=== PATIENT | female | born 1980 | race Caucasian/White ===

== ENCOUNTER 2023-11-30 08:50 | Emergency (ER) | payer BC, SELFPAY ==
[2023-11-30 08:51] VITALS: BP 199/127
[2023-11-30 09:09] VITALS: BP 170/116
--- NOTE | 2023-11-30 09:09 | ED.GENMED ---
History of Present Illness
General
Chief Complaint: Heart Rate Problem
Source: patient
Exam Limitations: none
Time Seen by Provider: 11/30/23 08:56
Nursing documentation reviewed up to this point in time: agreed with
Travel History
Have you had any contact with someone who has COVID-19?: No
Do you have any symptoms of coronavirus? Fever > 100 degrees, chills, cough, shortness of breath, sore throat, loss of taste or smell, muscle aches, or headache?: No
History of Present Illness
History of Present Illness:
43-year-old female with no significant chronic medical issues who presents to the emergency room for evaluation of palpitations. Patient reports onset of symptoms 10 PM last night and have been intermittent since that time. She reports sensation
'like butterflies in my chest.' She says that symptoms are very quick and then quickly resolve�she has not had sustained palpitations. She denies any associated chest pain. She denies any associated shortness of breath. She says that yesterday
throughout the day she would have quick bouts of dizziness but no dizziness at present and not temporally associated with sensation of palpitations. She denies any other complaints. She denies any recent increased caffeine. She denies any known
history of cardiac issues. She says that she has seen Dr. Rosales in the past for evaluation of similar symptoms years ago with no clear diagnosis.
Past History
Past History
ED Past Medical History: None
Social History
Personal:
Review of Systems
Review of Systems
All Other Systems: ROS reviewed and negative except as documented in HPI and ROS
Constitutional: Denies fever
Respiratory: Denies cough or trouble breathing
Cardiac: Reports palpitations; Denies chest pain or diaphoresis
ABD/GI: Denies abdominal pain, nausea or vomiting
: Denies flank pain
Musculoskeletal: Denies neck pain or back pain
Neurological: Reports dizzy; Denies headache
Phy Exam
Physical Exam
Physical Exam:
General: Awake, alert, oriented x3; no acute distress
Head: Normocephalic, atraumatic
Eyes: Conjunctiva normal, sclera anicteric
Throat: Airway intact, handling secretions
Neck: Trachea midline, supple without meningismus
Lungs: Clear to auscultation bilaterally, no wheezing, rales, rhonchi
Heart: Regular rate and rhythm with no appreciable ectopy, no murmurs, gallops, or rubs
Abd: Soft, non distended, nontender
Neuro: Cranial nerves grossly intact, speech fluid
Skin: no rash
Extremities: No edema in extremities, equal pulses in all extremities
Scores
Heart Failure Risk
Heart Failure Risk Score: Not Applicable
Heart Score for Chest Pain Patients
STEMI patient?: Not applicable
Withdrawal Assessment of Alcohol
Withdrawal Assessment Completed?: Not applicable
Course
Orders/Labs/Results
Orders:
Orders
11/30/23 08:54
ECG [Electrocardiogram (*1)] Urgent
Reason for Study: Palpitations
EKG- Treatment ONCE
11/30/23 08:57
Test Result ONCE
11/30/23 09:16
Complete Blood Count/With Diff Urgent
Comprehensive Metabolic Panel Urgent
HCG, Serum Qualitative Screen Urgent
Magnesium Urgent
TSH Reflex To Free T4 Urgent
Abnormal Lab Results
11/30/23
09:16
RBC 3.86 L 10^6/uL
(4.20-5.40)
MCH 34.2 H pg
(27.0-31.0)
Glucose 110 H mg/dl
(70-99)
11/30/23 09:16
11/30/23 09:16
Vital Signs
Initial and Last Documented VS:
Initial Vital Signs
Temp Pulse Resp BP Pulse Ox
36.8 C 75 18 199/127 100
11/30/23 08:51 11/30/23 08:51 11/30/23 08:51 11/30/23 08:51 11/30/23 08:51
Last Documented Vital Signs
Temp Pulse Resp BP Pulse Ox
36.8 C 66 11 166/96 99
11/30/23 08:51 11/30/23 10:15 11/30/23 10:15 11/30/23 10:00 11/30/23 10:15
MDM/Problems Addressed
Differential Diagnosis Includes:
PACs/PVCs, dysrhythmia including atrial fibrillation, anxiety
MDM/Problems Addressed:
43-year-old female presents to the emergency room for evaluation of palpitations intermittent since last night at 10 PM. Hypertensive but otherwise normal vitals. Physical exam as above. Plan to check an EKG. Will place an IV send labs including
a CBC and a CMP, thyroid studies, hCG. Will monitor on telemetry. Reassess after the above.
Labs reviewed: CBC and CMP unremarkable, thyroid studies normal, hCG negative. Vitals have been stable, blood pressure improved with no intervention. Reviewed telemetry strip from 2-hour ED stay and no arrhythmia or ectopy noted. No clear
indication for admission at this point I think she is stable for discharge�advised her to follow-up with her primary doctor to have blood pressure rechecked and to follow-up with cardiology regarding palpitations. Advised to return immediately if
she should have any sustained palpitations or worsening symptoms. She indicated understanding and is comfortable with this plan. We spoke about return precautions and all questions were answered.
Acute Exacerbation and/or Progression of Chronic Illness:
Acutely hypertensive with no signs or symptoms of hypertensive emergency�monitor clinically but no emergent antihypertensive indicated at present
Acute Exacerbation and/or Progression of Chronic Illness: HTN
*Pulse Oximetry
Patient hypoxic: no
*EKG
Interpreted by ED Provider?: Yes
Heart Rate: 77
Rate: normal
Rhythm: sinus
[place]: normal axis
Interval: normal interval
QRS Pattern: normal QRS
Ischemia: no ischemia
*Critical Care Note
Total Time (30-74mins, 75-104mins- exclusive of procedures): Not Applicable
Data Reviewed
Source: patient
ED Attending Note
-
Portions of this chart may have been created with voice recognition software.� Occasional wrong word or��sound alike� substitutions may have occurred due to the inherent limitations of voice recognition software.
Discharge Plan
Departure
Patient Disposition: Home (Routine Discharge)
Date of Disposition: 11/30/23
Time of Disposition: 10:48
Patient with high blood pressure during this ER visit?: Yes
Discharge Problem:
Palpitations, Hypertension
Instructions: Palpitations (DC), BLOOD PRESSURE
Prescriptions:
No Action
prenat.vits,kylie,[id number] [ Vitamin] 1 TAB tablet
1 tab PO DAILY
ibuprofen 200 MG/10 ML suspension
600 mg PO Q6HPRN PRN (Reason: MODERATE PAIN/CRAMPS) Qty: 0 0RF
docusate sodium 100 MG capsule
100 mg PO BID Qty: 0 0RF
Referrals:
Jaspreet Rosales MD [Active] - Call in 1-3 days for appt
Gustavo Gallego DO [Family Provider] - Call in 1-3 days for appt
Activity Restrictions/Additional Instructions:
Thank you for visiting the Emergency Department at [facility].
1. Please schedule a follow up appointment as directed. Call first thing tomorrow morning to make an appointment.
2. If indicated, please take your medications as instructed and indicated on discharge paperwork.
3. If any of your symptoms do not improve, or persist, or become more severe within 6-12 hours, please return to the emergency department for further care.
4. Please return to the emergency department if you develop a headache, neck pain/stiffness, fever greater than 100.4F, chest pain, shortness of breath, persistent nausea, vomiting, slurred speech, difficulty walking, numbness/tingling, weakness,
signs of infection or any other symptoms that are worrisome to you.
Please call [phone] if you have any questions.
Interventions
Interventions:
*Risk Screen - Suicide Last Done: 11/30/23 09:21
*General Assessment Last Done: 11/30/23 09:21
*Neglect/Abuse Screening Last Done: 11/30/23 09:21
ED- Fall Risk Assessment Last Done: 11/30/23 09:21
*ED COVID-19 Vaccine History Last Done: 11/30/23 08:51
ED- Cardiac Assessment Last Done: 11/30/23 09:20
ED- Pulmonary Assessment Last Done: 11/30/23 09:20
Discharge Date and Time
Print Language: KINYARWANDA
[2023-11-30 09:27] LABS: % Basophils 0.4 % (0-2); % Eosinophils 2.7 % (0-6); % Immature Granulocytes 0.2 % (0-0.5); % Monocytes 8.2 % (1.7-9.3); % Neutrophils 61.5 % (42.2-75.2); Absolute Eosinophils 0.1 10^3/uL (0-0.7); Absolute Lymphocytes 1.3 10^3/uL (1.2-3.4); Absolute Monocytes 0.4 10^3/uL (0.1-0.6); Hematocrit 37.1 % (37.0-47.0); Hemoglobin 13.2 g/dL (12.0-16.0); Mean Corp Hgb Conc. 35.6 g/dL (33.0-37.0); Mean Corpuscular Hgb 34.2 pg (27.0-31.0); Mean Corpuscular Volume 96.1 fL (81.0-99.0); Mean Platelet Volume 9.6 fL (7.4-10.4); Nucleated Red Blood Cells % 0 %; Platelet Count 217 10^3/uL (130-400); Red Blood Cell Count 3.86 10^6/uL (4.20-5.40); Red Cell Dist. Width 11.9 % (11.5-14.5); White Blood Cell Count 4.9 10^3/uL (4.8-10.8)
[2023-11-30 09:38] LABS: HCG, Serum Qualitative Screen Negative
[2023-11-30 09:42] LABS: ALT (SGPT) 23 U/L (0-35); AST (SGOT) 26 U/L (14-36); Albumin 4.6 g/dl (3.5-5.0); Alkaline Phosphatase 87 U/L (38-126); Blood Urea Nitrogen 16 mg/dl (7-17); Calcium 9.3 mg/dl (8.4-10.2); Carbon Dioxide 25 mmol/L (22-30); Chloride 102 mmol/L (98-107); Glucose 110 mg/dl (70-99); Magnesium 1.9 mg/dl (1.6-2.3); Potassium 4.1 mmol/L (3.5-5.1); Sodium 135 mmol/L (135-145); Total Bilirubin 0.7 mg/dl (0.2-1.3); Total Protein 7.7 g/dl (6.3-8.2); eGFR > 60.00
[2023-11-30 10:00] VITALS: BP 166/96
[2023-11-30 10:12] LABS: TSH Reflex To Free T4 2.65 uIU/ml (0.47-4.68)
== END 2023-11-30 10:56 | disposition home or self-care (01) ==
LOC: EMR 08:50
PROVIDERS: EMERGENCY PHYSICIAN Emergency Medicine; FAMILY PHYSICIAN Family Medicine
DX: R00.2 Palpitations (principal); R42 Dizziness and giddiness; I10 Essential (primary) hypertension
CPT/HCPCS: 99283; 80053; 83735; 84443; 84703; 85025; 93005

== ENCOUNTER 2025-05-20 13:59 | Emergency (ER) | payer OTHER, SELFPAY ==
[2025-05-20 14:04] VITALS: BP 192/119
[2025-05-20 14:25] LABS: Hematocrit 39.0 % (37.0-47.0); Hemoglobin 13.2 g/dL (12.0-16.0); Mean Corp Hgb Conc. 33.8 g/dL (33.0-37.0); Mean Corpuscular Volume 100.3 fL (81.0-99.0); Nucleated Red Blood Cells % 0 %; Platelet Count 244 10^3/uL (130-400); Red Cell Dist. Width 11.8 % (11.5-14.5)
--- NOTE | 2025-05-20 16:22 | ED.GENMED ---
History of Present Illness
General
Chief Complaint: Vaginal Bleeding
Source: patient
Exam Limitations: none
Time Seen by Provider: 05/20/25 15:26
Nursing documentation reviewed up to this point in time: agreed with
History of Present Illness
History of Present Illness:
Patient is a 45-year-old healthy female who presents to the emergency department for evaluation of heavy vaginal bleeding. Patient states that her suspected menstrual cycle started this past . She states that she has had persistent vaginal
bleeding since. She reports that bleeding has been 'much heavier' than prior menstrual cycles. She has been bleeding through a super tampon or pad every 1-2 hours. She also reports passing very small clots, about the size of a dime. She states
that at initial onset of bleeding she had mild pelvic cramping however this has resolved.
She denies any shortness of breath or episodes of syncope. She does report feeling generally weak. No fevers or vomiting. Patient contacted her [facility] who recommended evaluation.
Of note, patient states this is her first menstrual cycle in the past 2 months. She thought that she may be perimenopausal.
She is currently scheduled for annual [facility] appointment in August.
Past History
Past History
ED Past Medical History: None
Social History
Personal:
Review of Systems
Review of Systems
Allergies reviewed?: Yes
All Other Systems: ROS reviewed and negative except as documented in HPI and ROS
Phy Exam
Physical Exam
Physical Exam:
Vitals: Hypertensive, otherwise vital signs stable. Afebrile
General: Patient is well appearing, in no distress
Skin: Warm and dry, no rashes or lesions
Head: Normocephalic, atraumatic
Cardiac: Regular rate and rhythm, no murmurs.
Pulm: Normal respiratory effort. Lungs clear bilaterally
Abdomen: Abdomen soft and nontender. No rebound or guarding.
Pelvic: External genitalia normal appearing without lesions, ulcerations, or adenopathy. Vaginal vault without lesions or ulcerations. Bleeding from cervical os without obvious clots.
Extremities: No evidence of cyanosis or edema
Neuro: AAOx3. Grossly intact
Psychiatric: Normal affect.
Course
Orders/Labs/Results
Orders:
Orders
05/20/25 14:08
Test Result ONCE
05/20/25 14:17
Type+Screen Urgent
Complete Blood Count/With Diff Urgent
05/20/25 15:58
Pelvis & Transvaginal US [US Pelvis W Transvag Combined] Urgent
Comment:
Reason For Exam: vaginal bleeding
05/20/25 18:29
Test Result ONCE
05/20/25 18:30
, Urine Qualitative Screen [HCG, Urine Qualitative Screen] Urgent
Date Specimen was Collected: 05/20/25
Time Specimen was Collected: 18:29
Abnormal Lab Results
05/20/25
14:17
RBC 3.89 L 10^6/uL
(4.20-5.40)
MCV 100.3 H fL
(81.0-99.0)
MCH 33.9 H pg
(27.0-31.0)
05/20/25 14:17
05/20/25 14:39
Vital Signs
Initial and Last Documented VS:
Initial Vital Signs
Temp Pulse Resp BP Pulse Ox
98.1 F 88 18 192/119 100
05/20/25 14:04 05/20/25 14:04 05/20/25 14:04 05/20/25 14:04 05/20/25 14:04
Last Documented Vital Signs
Temp Pulse Resp BP Pulse Ox
98.1 F 75 18 171/98 100
05/20/25 14:04 05/20/25 18:20 05/20/25 14:04 05/20/25 18:20 05/20/25 18:20
MDM/Problems Addressed
Differential Diagnosis Includes:
Not limited to: Abnormal uterine bleeding, uterine fibroids, malignancy, anemia, threatened miscarriage, ectopic , etc.
MDM/Problems Addressed:
45-year-old female with abnormal uterine bleeding x 4 days w/ mild fatigue and lightheadedness. No abdominal pain, vomiting, syncope, shortness of breath. Irregular menstruation over the past few months. Sent by [facility] for further evaluation.
Patient hemodynamically stable. On exam, she appears in no distress. Cardio/ pulmonary assessment unremarkable. Benign abdominal exam. Speculum exam reveals bleeding from cervical os, however no pooling of blood or evidence of clot.
CBC reveals normal hemoglobin. No anemia. Urine hCG negative. Pelvic ultrasound without any acute abnormalities.
Impression is abnormal uterine bleeding, likely secondary to perimenopausal state. No structural abnormality noted on US. Her bleeding seems to have slowed since arrival to ED. She has not needed to replace pad since arrival. She has no current
symptoms of lightheadedness or dizziness. She has remained hemodynamically stable.
Work up in ED unremarkable. Feel stable for discharge home with outpatient [facility] follow up. She will contact office for appointment later this week. Strict return precautions discussed. Patient verbalized understanding and comfortable with plan.
Chronic conditions affecting care:
N/A
Acute Exacerbation and/or Progression of Chronic Illness:
N/A
*Radiology
Radiology exam reviewed: radiology read reviewed
*Pulse Oximetry
SaO2: 100
Oxygen Mode of Delivery: Room air
Patient hypoxic: no
*EKG
Interpreted by ED Provider?: NA
*Print Production Manager Interpretation
Rate: Print Production Manager- N/A
*Critical Care Note
Total Time (30-74mins, 75-104mins- exclusive of procedures): Not Applicable
ED Attending Note
-
Portions of this chart may have been created with voice recognition software.� Occasional wrong word or��sound alike� substitutions may have occurred due to the inherent limitations of voice recognition software.
Discharge Plan
Departure
Patient Disposition: Home (Routine Discharge)
Date of Disposition: 05/20/25
Time of Disposition: 18:31
Patient with high blood pressure during this ER visit?: Yes
Condition: Good
Covid-19: Not Applicable
Discharge Problem:
Abnormal uterine bleeding
Instructions: Heavy Periods (DC), BLOOD PRESSURE
Prescriptions:
No Action
prenat.vits,kylie,peo-klsw-vrzyj [ Vitamin] 1 TAB tablet
1 tab PO DAILY
ibuprofen 200 MG/10 ML suspension
600 mg PO Q6HPRN PRN (Reason: MODERATE PAIN/CRAMPS) Qty: 0 0RF
docusate sodium 100 MG capsule
100 mg PO BID Qty: 0 0RF
Referrals:
Gustavo Gallego DO [Family Provider, Family Practice]
Activity Restrictions/Additional Instructions:
RETURN TO THE EMERGENCY DEPARTMENT ANY FEVERS, ABDOMINAL PAIN, PERSISTENT HEAVY VAGINAL BLEEDING, LIGHTHEADEDNESS/DIZZINESS, EPISODES OF FAINTING OR SIGNIFICANT WEAKNESS, OR ANY OTHER CONCERNS
- As discussed -your hemoglobin was normal today in the emergency department. Your ultrasound showed no acute abnormalities.
- It is important stay well-hydrated. You can take Tylenol and/Motrin as needed for pain.
- Follow-up with your [facility] HELPER later this week for further evaluation/management to ensure that bleeding improves.
Monitor your symptoms closely and return to the emergency department with any acute worsening/new symptoms or any other concerns
Interventions
Interventions:
*Risk Screen - Suicide Last Done: 05/20/25 14:07
*General Assessment Last Done: 05/20/25 15:35
*Neglect/Abuse Screening Last Done: 05/20/25 14:07
*ED- Fall Risk Assessment Last Done: 05/20/25 15:35
*ED COVID-19 Vaccine History Last Done: 05/20/25 15:35
*ED Influenza Vaccine History Last Done: 05/20/25 15:35
*Nursing Disposition Last Done: 05/20/25 19:05
ED-Female Genitourinary Assessment Last Done: 05/20/25 15:35
Discharge Date and Time
Discharge Date/Time: 05/20/25 19:05
Print Language: SYRIAN
[2025-05-20 18:20] VITALS: BP 171/98
[2025-05-20 18:41] LABS: HCG, Urine Qualitative Screen Negative
== END 2025-05-20 19:05 | disposition home or self-care (01) ==
LOC: EMR 13:59
PROVIDERS: Emergency Medicine; Physician Assistant; EMERGENCY PHYSICIAN Emergency Medicine; FAMILY PHYSICIAN Family Medicine
DX: N93.9 Abnormal uterine and vaginal bleeding, unspecified (principal)
CPT/HCPCS: 99284; 76830; 76856; 81025; 85025; 86850; 86900; 86901